=== PATIENT | male | born 1950 | race Caucasian/White ===

== ENCOUNTER 2019-05-29 16:42 | Emergency (ER) | payer MEDICARE, BC, SELFPAY ==
[2019-05-29] VITALS (19 sets, daily range): BP systolic 118–155; BP diastolic 78–98; PULSE 60–73; RESP 12–21; TEMP 37.1–37.2; O2SAT 88–99
--- NOTE | 2019-05-29 16:56 | ED.GENADUL_ITS ---
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 He had an ablation for afib at [facility] a few weeks ago that was uneventful per pt. The past few days has had intermittent periods of feeling his heart racing and pounding, denies any pain during this or radiation of pain. He is hd stable with sinus rhythm and no ischemic findings on ekg. Will obtain lab work to eval for nstemi, heart score is 1. Also will evaluate for electrolyte abnormalities. He has no hypoxia, tachycardia or evidence of dvt on exam and no pleuritic chest pain so doubt PE. No tearing back pain so doubt dissection. pt remains asymptomatic here and labs are unremarkable and no concerning findings on tele. REviewed his cardiology note from April Dr. Cornelius and seems like his palpitations have been an issue for quite some time. I did offer an observation admission but he dclined which I feel is reasonable given length of time with his symptoms. He understands he needs to f/u with cardiology and return precautions given Differential Diagnosis afib, svt, electrolyte abnormality Lab Data Lab results reviewed: Yes I reviewed the patient's lab results. HPI General Mode of arrival: ambulatory . Date/Time Provider Initiated Documentation: 05/29/19 16:44 . Limitations to Documentation: no limitations . Information obtained by: patient . History of Present Illness 69 year old M presents to the emergency department with the chief complaint of palpitations, described as moderate, and is localized to the chest. and it has been intermittent. No relieving factors improve symptom(s), No exacerbating factors reported . Patient did receive the following treatments prior to arrival, none Related Data Home Medications Medication Instructions Recorded Confirmed apixaban [Eliquis] 5 mg PO HS 05/29/19 05/29/19 atorvastatin 10 mg PO 05/29/19 05/29/19 diltiazem HCl 120 mg PO 05/29/19 05/29/19 Allergies Allergy/AdvReac Type Severity Reaction Status Date / Time No Known Allergies Allergy Unverified 05/29/19 17:00 General Stated Complaint: Chest Pain NANCY: 2 Review of Systems Review of Systems All systems reviewed & are unremarkable except as noted in HPI and below Constitutional Denies chills, Denies fever(s) and Denies weakness Cardiovascular Denies chest pain Respiratory Denies cough Gastrointestinal Denies abdominal pain, Denies nausea and Denies vomiting Musculoskeletal Denies joint swelling Neurologic Denies weakness PFSH Social History Alcohol Intake: current Alcohol type: beer Do you feel safe at home: Yes Do you feel safe in your relationship?: Yes Exam Const General: no acute distress Orientation: alert HENMT Head: normal to inspection Ears: external ears normal General nose exam: external nose normal Mouth: moist mucous membranes Eyes General: appearance normal, both eyes and all related structures Neck Neck: normal visual inspection Resp Effort & Inspection: normal respiratory effort and able to speak in complete sentences Cardio Rate: regular rate Skin General skin exam: no rashes or lesions noted Neuro General: alert and oriented x3 Extrem General: normal to inspection Psych Mental Status: mental status grossly normal Course Vital Signs Temperature 37.2 C 05/29/19 16:49 Pulse 70 05/29/19 16:49 Respiratory Rate 15 05/29/19 16:49 Blood Pressure 155/98 H 05/29/19 16:49 Pulse Oximetry 99 05/29/19 16:49 Temperature 37.2 C 05/29/19 16:49 Pulse 70 05/29/19 16:49 Respiratory Rate 15 05/29/19 16:49 Respiratory Effort 05/29/19 16:53 Blood Pressure 155/98 H 05/29/19 16:49 Pulse Oximetry 99 05/29/19 16:49 Oxygen Delivery Method Room Air 05/29/19 16:49 Oxygen Flow Rate 0 05/29/19 16:49 Pain Level 0 05/29/19 16:49
[2019-05-29] MEDS: Normal Saline Flush 10 ML SYR IVP (17:00)
[2019-05-29 17:08] LABS: Abs Immature Grans 0.01 k/cumm (0.0-0.09); Absolute Basophil Count 0.01 k/cumm (0.0-0.2); Absolute Eosinophil Count 0.06 k/cumm (0.0-0.7); Absolute Lymphocyte Count 1.42 k/cumm (1.2-3.4); Absolute Monocyte Count 0.43 k/cumm (0.11-0.7); Absolute Neutrophil Count 2.81 k/cumm (1.2-6.7); Basophils % 0.2; Eosinophils % 1.3; HCT 45.4 % (40.0-50.0); Immature Grans % 0.2; Mean Corpuscular Hemoglobin 30.6 pg (27.0-33.0); Mean Corpuscular Volume 92.7 fL (80-95); Mean Platelet Volume 9.4 fL (8.0-11.0); Monocytes % 9.1; Neutrophils % 59.2; Platelet Count 233 x1000/uL (130-400); RBC Distribution Width 12.6 % (11.8-14.1); White Blood Cell Count 4.74 k/cumm (4.4-10.8)
[2019-05-29 17:24] LABS: PTT Activated 29.8 sec (21.0-31.4); Prothrombin Time 9.7 sec (9.3-11.0)
[2019-05-29 17:45] LABS: ALT 50 U/L (12-78); AST 24 U/L (15-37); Albumin 3.9 g/dL (3.4-5.0); Alkaline Phosphatase 87 U/L (46-116); Anion Gap 8.4 mmol/L (3-11); BUN 17 mg/dL (7-18); Bilirubin, Total 0.8 mg/dL (0.2-1.0); CO2 28.6 mmol/L (21.0-32.0); CREATININE 0.79 mg/dL (0.70-1.30); Calcium 8.8 mg/dL (8.5-10.1); Chloride 104 mmol/L (98-107); Glucose 98 mg/dL (70-100); NT-proBNP 178 pg/mL; Potassium 3.8 mmol/L (3.5-5.1); Sodium 141 mmol/L (136-145); Total Protein 7.4 g/dL (6.4-8.2)
[2019-05-29 17:46] LABS: Troponin I < 0.05 ng/mL (0.00-0.06)
== END 2019-05-29 18:35 | disposition home or self-care (01) ==
PROVIDERS: Emergency Provider Emergency Medicine
DX: R00.2 Palpitations (principal); I48.91 Unspecified atrial fibrillation; Z79.01 Long term (current) use of anticoagulants
CPT/HCPCS: 36415; 80053; 93005; 99284; 83735; 83880; 84484; 85025; 85610; 85730; 93010; J3490